=== PATIENT | female | born 1965 | race Two or more races ===

== ENCOUNTER 2018-11-17 08:05 | Day surgery (SDC) | payer OTHER | END 2018-11-17 12:00 | disposition home or self-care (01) | LOC: AMB-ENDOS 08:05 | DX: K64.8 Other hemorrhoids (principal); Z12.11 Encounter for screening for malignant neoplasm of colon ==

== ENCOUNTER 2020-07-29 17:43 | Emergency (ER) | payer OTHER ==
[~2020-07-29] VITALS: Ht 162.6 cm; Wt 77.1 kg
== END 2020-07-29 19:30 | disposition home or self-care (01) ==
LOC: ER 17:43
DX: M54.16 Radiculopathy, lumbar region (principal)

== ENCOUNTER 2021-08-23 17:09 | Emergency (ER) | payer OTHER ==
[~2021-08-23] VITALS: Ht 162.6 cm; Wt 75.3 kg
[2021-08-23] MEDS ORDERED: EC-NAPROSYN375 MG PO (20:32)
== END 2021-08-23 20:59 | disposition home or self-care (01) ==
LOC: ER 17:09
DX: M17.12 Unilateral primary osteoarthritis, left knee (principal)

== ENCOUNTER 2022-07-05 17:23 | Emergency (ER) | payer OTHER ==
[~2022-07-05] VITALS: Ht 162.6 cm; Wt 70.3 kg
[~2022-07-05 17:23] MED LIST: EC-NAPROSYN375 MG PO
[2022-07-05] MEDS ORDERED: BACTRIM DS TAB1 EACH PO (19:33)
== END 2022-07-05 19:45 | disposition home or self-care (01) ==
LOC: ER 17:23
DX: L08.9 Local infection of the skin and subcutaneous tissue, unspecified (principal)

== ENCOUNTER 2025-01-01 20:57 | Emergency (ER) | payer OTHER ==
[~2025-01-01] VITALS: Ht 162.6 cm; Wt 65.8 kg
[~2025-01-01 20:57] MED LIST changes: +BACTRIM DS TAB1 EACH PO
[2025-01-01] MEDS ORDERED: MECLIZINE HCL 25 MG TABLET PO STA (21:35)
[2025-01-01 21:57] LABS: BASO % 0.2 % (0.1-1.2); EOS # 0.14 (0.04-0.54); EOS % 3.1 % (0.7-7.0); LYMPH # 1.90 (1.18-3.74); LYMPH % 41.5 % (19.3-53.1); MEAN PLATELET VOLUME 11.00 fl (9.4-12.4); MONO # 0.30 (0.24-0.82); MONO % 6.6 % (4.7-12.5); NEUT # 2.22 (1.56-6.13); NEUT % 48.4 % (34.0-71.1); RED CELL DISTRIBUTION WIDTH 13.6 % (11.6-14.4)
[2025-01-01 22:19] LABS: INR 0.98
[2025-01-01 22:23] LABS: ALT/SGPT 26.0 U/L (12-78); AST/SGOT 16.0 U/L (15-37); BILIRUBIN TOTAL 0.25 mg/dL (0.3-1.2); BUN CREA RATIO 19.0 (7.0-25.0); CREATININE SERUM 0.69 mg/dL (0.55-1.02); GFR 87.69; GLOBULINA 2.9 G/DL (2.4-3.5); GLUCOSE FASTING 130.0 mg/dL (65-100); OSMOLALITY SERUM 289.0 MOSM/KG (275-295)
== END 2025-01-02 | disposition home or self-care (01) ==
LOC: ER 20:57
PROVIDERS: General Practice
DX: H81.10 Benign paroxysmal vertigo, unspecified ear (principal)